=== PATIENT | male | born 1940 | race Caucasian/White ===

== ENCOUNTER 2018-10-18 07:23 | Day surgery (SDC) | payer MEDICARE, BC ==
[2018-10-18] MEDS ORDERED: PROPOFOL INJ 200 MG/20 ML VIAL IV ONE (08:36)
[2018-10-18] MEDS ORDERED: DIPHENHYDRAMINE HCL 50 MG/ML VIAL IV PRN (09:33)
[2018-10-18] MEDS ORDERED: PROMETHAZINE HCL INJ 25 MG/1 ML VIAL IV PRN (09:33)
[2018-10-18] MEDS ORDERED: FENTANYL CITRATE INJ/PF 100 MCG/2 ML AMPUL IV PRN ×3 (09:33)
--- NOTE | 2018-10-18 10:09 | EKG REPORT ---
SEVERITY:- NORMAL ECG - SINUS RHYTHM : Confirmed by: Maria Fernanda Mcneal 18-Oct-2018 10:08:52
[2018-10-18 10:31] VITALS: BP 135/75
--- NOTE | 2018-10-18 11:24 | Operative Report ---
Operative Report DATE OF SURGERY: 10/18/18 Operative Report: The risks, benefits and alternatives of the procedure including the risk of bleeding, perforation requiring surgery have been explained to the patient in detail and informed consent has been obtained. Patient is brought back to the operating room and placed in a left, lateral decubital position. Timeout was called. Propofol medication is administered. An Olympus videoscope was introduced into the patient's rectum. There are no masses, tears or fissures. The scope was then advanced all the way to the cecum. The cecum was identified by the usual anatomical landmarks including the ileocecal valve as well as the appendiceal office. Photodocumentation is obtained. Prep is good. The scope was then sequentially pulled back via the various segments of the colon including the ascending colon, hepatic flexure, transverse colon, splenic flexure, descending colon and finally into the rectosigmoid portions of the colon. Retroflexion maneuver was performed. PREOPERATIVE DIAGNOSIS: Colorectal cancer screening POSTOPERATIVE DIAGNOSIS: 2 colon polyps that were removed via snare polypectomy, polyps were located in the descending colon as well as in the hepatic flexure area. Diverticulosis without any evidence of diverticulitis. Internal hemorrhoids. Melanosis coli OPERATION: Colonoscopy with snare polypectomy SURGEON: BRONWYN MENDOZA ANESTHESIA: LMAC TISSUE REMOVED OR ALTERED: As noted above. COMPLICATIONS: None. ESTIMATED BLOOD LOSS: None. INTRAOPERATIVE FINDINGS: As noted above. PROCEDURE: Patient tolerated the procedure well. No immediate postprocedure complications are noted. Patient discharged in good condition. Discharge date 10/18/2018. Discharge diet: Regular. Discharge activity: Regular. 2-3-week follow-up to discuss findings. Patient is instructed to call the office or proceed to the emergency room should there be any further problems or questions. Wait on the pathology. 5-year surveillance colonoscopy.
== END 2018-10-18 10:36 | disposition home or self-care (01) ==
LOC: OROUT 07:23
PROVIDERS: ATTEND Internal Medicine Gastroenterology
DX: Z12.11 Encounter for screening for malignant neoplasm of colon (principal); K57.30 Diverticulosis of large intestine without perforation or abscess without bleeding; K64.8 Other hemorrhoids; D12.4 Benign neoplasm of descending colon; D12.6 Benign neoplasm of colon, unspecified; K63.89 Other specified diseases of intestine; J44.9 Chronic obstructive pulmonary disease, unspecified; I10 Essential (primary) hypertension; K21.9 Gastro-esophageal reflux disease without esophagitis; Z87.891 Personal history of nicotine dependence; Z79.82 Long term (current) use of aspirin; Z79.899 Other long term (current) drug therapy; Z79.51 Long term (current) use of inhaled steroids; Z85.828 Personal history of other malignant neoplasm of skin
CPT/HCPCS: 45385; 88305 ×2; 93005; 93010; J2704; 811

== ENCOUNTER → 2019-06-20 | Outpatient (CLI) | payer MEDICARE, BC ==
[2019-06-20 11:14] LABS: APPEARANCE,URINE CLEAR; BILIRUBIN,URINE NEGATIVE (NEGATIVE); COLOR,URINE STRAW; GLUCOSE, URINE NEGATIVE (NEGATIVE); KETONES,URINE NEGATIVE (NEGATIVE); LEUKOCYTE ESTERASE,URINE NEGATIVE (NEGATIVE); NITRITE,URINE NEGATIVE (NEGATIVE); PROTEIN,URINE 30 mg/dL (NEGATIVE); URINE SPECIFIC GRAVITY 1.006; UROBILINOGEN,URINE NEGATIVE mg/dL (<2.0)
[2019-06-20 11:43] LABS: ALBUMIN 4.4 g/dL (3.5-5.0); ANION GAP 11 (5-19); BLOOD UREA NITROGEN 20 mg/dL (7-20); CALCIUM 9.9 mg/dL (8.4-10.2); CARBON DIOXIDE 26 mmol/L (22-30); CHLORIDE 102 mmol/L (98-107); GLUCOSE 88 mg/dL (75-110); PHOSPHORUS 3.1 mg/dL (2.5-4.5); POTASSIUM 4.8 mmol/L (3.6-5.0)
[2019-06-20 12:12] LABS: UR PRO/CREAT RATIO RESULT 1.3 mg/mg (0.0-0.2); URINE CREATININE 43.8 mg/dL (22-328)
== END ==
LOC: OD 10:03
PROVIDERS: ATTEND Internal Medicine Nephrology
DX: I12.9 Hypertensive chronic kidney disease with stage 1 through stage 4 chronic kidney disease, or unspecified chronic kidney disease (principal); N18.3 Chronic kidney disease, stage 3 (moderate); R80.9 Proteinuria, unspecified
CPT/HCPCS: 36415; 80069; 81001; 82570; 84156

== ENCOUNTER 2020-05-03 19:17 | Inpatient (IN) | payer MEDICARE, BC ==
[2020-05-03] MEDS ORDERED: IPRATROPIUM/ALBUTEROL 0.5-2.5 MG/3 ML AMPUL NEB ONE (21:32)
[2020-05-03] MEDS ORDERED: NORMAL SALINE 1000 ML 1,000 ML IV ONE (21:32)
[2020-05-03] MEDS ORDERED: METHYLPREDNISOLONE INJ 125 MG/2 ML SDV IV ONE (21:33)
--- NOTE | 2020-05-03 21:36 | ER Document Report ---
ED General - General Chief Complaint: Shortness Of Breath Stated Complaint: SOB Time Seen by Provider: 05/03/20 21:02 TRAVEL OUTSIDE OF THE [place] IN LAST 30 DAYS: No - HPI Context: This is a 79-year-old male, with a history of COPD, not on home O2, quit smoking 3 years ago, presenting complaining of shortness of breath for the past 2 days. 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 Patient states he was working in an attic approximately 2 days ago for about 45 minutes. He says the attic was extremely hot and he found that his shortness of breath symptoms started after working in the attic. He states that despite home breathing treatments his symptoms have been persistent for basically 2-1/2 days now. Patient states that exertion and heat seem to exacerbate his shortness of breath. Patient states he keeps his house between 74 and 77 degrees. Patient states that the only alleviating factor for his shortness of breath over the past couple of days has been to step out into the cool dry night air. Patient has a past medical history also significant for elevated cholesterol, hypertension and chronic renal insufficiency. Patient is not on dialysis. Patient sees a Dr. Desai in [place]. And patient also sees a Dr. Johnson with cardiology in [place]. Patient states he had a stress test done earlier this year that was negative. Patient denies loss of taste or smell, known exposure to patients or persons positive for COVID or persons under investigation for COVID. Patient denies fever and chills patient denies chest pain, nausea, vomiting, headache, slurred speech. Patient's initial O2 sat upon EMS arrival was 85% and increased to 93% after putting him on 2 L of oxygen by nasal cannula. Associated symptoms: Other - See HPI Exacerbated by: Other - See HPI Relieved by: Other - See HPI Recently seen / treated by doctor: No - Related Data Allergies/Adverse Reactions: No Known Allergies Allergy (Verified 10/18/18 08:07) Past Medical History - General Information source: Patient, Emergency Med Personnel - Social History Smoking Status: Former Smoker Drug Abuse: None Lives with: Alone Family History: Reviewed & Not Pertinent Patient has suicidal ideation: No - Past Medical History Cardiac Medical History: Reports: Hx Coronary Artery Disease - CARDIAC STENT X 1, Hx Hypercholesterolemia, Hx Hypertension - ON MEDICATION Denies: Hx Heart Attack Pulmonary Medical History: Reports: Hx COPD - NO OXYGEN, USE OF INHALER PRN, Hx Pneumonia - 1970 Denies: Hx Asthma, Hx Bronchitis Neurological Medical History: Denies: Hx Cerebrovascular Accident, Hx Seizures Musculoskeletal Medical History: Denies Hx Arthritis - Immunizations Hx Diphtheria, Pertussis, Tetanus Vaccination: No - UNSURE 4-5 YRS AGO? Hx Pneumococcal Vaccination: 08/22/10 Review of Systems - Review of Systems Constitutional: No symptoms reported EENT: No symptoms reported Cardiovascular: No symptoms reported Respiratory: Cough, Short of breath Gastrointestinal: No symptoms reported Genitourinary: No symptoms reported Male Genitourinary: No symptoms reported Musculoskeletal: No symptoms reported Skin: No symptoms reported Hematologic/Lymphatic: No symptoms reported Neurological/Psychological: No symptoms reported -: Yes All other systems reviewed and negative Physical Exam - Vital signs Vitals: Temp Resp BP Pulse Ox 98.0 F 23 H 123/75 95 05/03/20 19:19 05/03/20 19:19 05/03/20 19:19 05/03/20 19:19 - Notes Notes: CONSTITUTIONAL [Vital signs reviewed, Patient appears comfortable, Alert and oriented X 3, Normal stature. Nontoxic appearance and patient does not appear to be in any acute distress] HEAD [Atraumatic, Normocephalic.] EYES [Eyes are normal to inspection, No discharge from eyes, Extraocular muscles intact, Sclera are normal, Conjunctiva are normal.] ] NECK [Normal ROM, No jugular venous distention, No meningeal signs, no carotid bruit.] RESPIRATORY CHEST [Chest is nontender, Breath sounds slightly diminished and occasional expiratory wheeze is present, No respiratory distress.] CARDIOVASCULAR [RRR, No murmurs, Normal S1 S2, No rub, No gallop.] ABDOMEN [Abdomen is nontender, No pulsatile masses, No other masses, Bowel sounds normal, No distension, No peritoneal signs, No hernias.] BACK [There is no CVA Tenderness, There is no tenderness to palpation, Normal inspection.] UPPER EXTREMITY [Inspection normal, No cyanosis, No clubbing, No edema, 2+ radial pulses.] LOWER EXTREMITY [Inspection normal, No cyanosis, No clubbing, No edema, No calf tenderness, 2+ femoral pulses.] NEURO [No focal motor deficits, No focal sensory deficits, Speech normal.] SKIN [Skin is warm, Skin is dry, Skin is normal color.] LYMPHATIC [No adenopathy in neck.] PSYCHIATRIC [Normal affect. ] Course - Re-evaluation Re-evalutation: 05/03/20 21:51 This MD spoke to the patient's daughter, Omaira at 2143 hrs. at [phone] to give her an update in terms of how her father was doing. Omaira states she appreciated the call. This MD said that he would contact Omaira once the work-up was completed on the patient. 05/04/20 00:21 Results of ED MSE discussed with patient and patient's daughter by phone. Recommendation to admit patient discussed with patient. Patient was agreeable to this. All questions were answered. - Vital Signs Vital signs: Temp Pulse Resp BP Pulse Ox 98.1 F 136 H 34 H 109/65 90 L 05/04/20 02:01 05/03/20 23:58 05/04/20 02:01 05/04/20 02:01 05/04/20 02:01 - Laboratory Result Diagrams: 05/03/20 19:44 05/03/20 19:44 Laboratory results interpreted by me: 05/03/20 05/03/20 05/04/20 19:44 19:44 00:05 WBC 11.9 H Hgb 13.0 L Seg Neuts % (Manual) 93 H Band Neutrophils % 2 L Lymphocytes % (Manual) 3 L Monocytes % (Manual) 2 L Abs Neuts (Manual) 11.3 H Abs Lymphs (Manual) 0.4 L VBG pCO2 32.4 L VBG HCO3 19.7 L Sodium 133.2 L BUN 37 H Creatinine 1.90 H Est GFR ( Amer) 41 L Est GFR (MDRD) Non-Af 34 L Glucose 116 H Total Bilirubin 1.6 H Direct Bilirubin 0.5 H - Diagnostic Test Radiology reviewed: Reports reviewed - EKG Interpretation by Me Additional EKG results interpreted by me: 05/03/20 21:52 EKG obtained on 05/03/2020 at 1920 hrs. was interpreted by this MD. Findings normal sinus rhythm, rate 97, normal axis, MD interval appears within normal limits, P waves proceed QRS complexes, QRS complexes appear within normal limits. QTc is not prolonged, there are no obvious patterns of ST segment elevation or depression present to suggest acute myocardial ischemia or infarction. There is no prior EKG readily available for comparison. Impression normal sinus rhythm with nonspecific ST segments. - Consults Dr. Ragland Time consulted: 00:10 - will see pt in ED Reason for consultation: 05/04/20 00:10 pneumonia Consulted provider: will come to ER Discharge - Discharge Clinical Impression: Pneumonia Qualifiers: Pneumonia type: due to unspecified organism Laterality: left Lung location: lower lobe of lung Qualified Code(s): J18.9 - Pneumonia, unspecified organism Condition: Stable Disposition: ADMITTED INPATIENT Admitting Provider: Ellyn (Hospitalist) Unit Admitted: [facility]
--- NOTE | 2020-05-03 22:38 | RADIOLOGY REPORT (SQ) ---
CHEST X-RAY 1 VIEW on 05/03/2020 at 10:01 PM CLINICAL INDICATION: Shortness of breath COMPARISON: None FINDINGS: There is evidence of calcified granulomatous disease in the chest. There is patchy left lower lung opacity suggesting early pneumonia. Lungs are otherwise clear. Cardiac, hilar and mediastinal contours are within normal limits. Pulmonary vascularity is within normal limits. IMPRESSION: Patchy left basilar opacity suggesting early pneumonia.
[2020-05-03 22:59] LABS: HEMATOCRIT 38.3 % (37.9-51.0); MEAN CORPUSCULAR HEMOGLOBIN 29.9 pg (27.0-33.4); MEAN CORPUSCULAR HGB CONC 34.1 g/dL (32.0-36.0); MEAN CORPUSCULAR VOLUME 88 fl (80-97); PLATELET COUNT 158 10^3/uL (150-450); RED BLOOD COUNT 4.36 10^6/uL (4.35-5.55); RED CELL DISTRIBUTION WIDTH 13.8 % (11.5-14.0); WHITE BLOOD COUNT 11.9 10^3/uL (4.0-10.5)
[2020-05-03 23:02] LABS: ALBUMIN 3.9 g/dL (3.5-5.0); ALKALINE PHOSPHATASE 51 U/L (38-126); ANION GAP 10 (5-19); ASPARTATE AMINO TRANSFERASE 23 U/L (17-59); BILIRUBIN,DIRECT 0.5 mg/dL (0.0-0.4); BILIRUBIN,TOTAL 1.6 mg/dL (0.2-1.3); BLOOD UREA NITROGEN 37 mg/dL (7-20); CALCIUM 9.2 mg/dL (8.4-10.2); CARBON DIOXIDE 22 mmol/L (22-30); CHLORIDE 101 mmol/L (98-107); GLUCOSE 116 mg/dL (75-110); POTASSIUM 4.2 mmol/L (3.6-5.0); TOTAL PROTEIN 7.1 g/dL (6.3-8.2)
[2020-05-03 23:12] LABS: NT PRO BNP 172 pg/mL (<450)
[2020-05-03 23:20] LABS: TROPONIN I < 0.012 ng/mL
[2020-05-03 23:21] LABS: ABSOLUTE LYMPHOCYTES# (MANUAL) 0.4 10^3/uL (0.5-4.7); ABSOLUTE MONOCYTES # (MANUAL) 0.2 10^3/uL (0.1-1.4); BAND NEUTROPHILS % (MANUAL) 2 % (3-5); BASOPHILS % (MANUAL) 0 % (0-2); EOSINOPHILS % (MANUAL) 0 % (0-6); HYPERSEGMENTED NEUTROPHILS PRESENT; LYMPHOCYTES % (MANUAL) 3 % (13-45); MONOCYTES % (MANUAL) 2 % (3-13); SEGMENTED NEUTROPHILS % (MAN) 93 % (42-78); TOTAL CELLS COUNTED 100; TOXIC VACUOLATION PRESENT
[2020-05-03 23:22] LABS: PLATELET COMMENT ADEQUATE
[2020-05-03 23:24] LABS: BURR CELLS SLIGHT
[2020-05-04] MEDS ORDERED: CEFTRIAXONE 1 GM/D5W RTU 1 GM/50 ML RTUPB IV ONE (00:08)
[2020-05-04] MEDS ORDERED: AZITHROMYCIN INJ 500 MG VIAL IV ONE ×2 (00:09→04:00)
[2020-05-04 00:44] LABS: VENOUS BLOOD BASE EXCESS -4.2 mmol/L; VENOUS BLOOD HCO3 19.7 mmol/L (20-32); VENOUS BLOOD PCO2 32.4 mmHg (35-63); VENOUS BLOOD PH 7.4 (7.30-7.42)
--- NOTE | 2020-05-04 01:32 | PDOC H&P ---
History of Present Illness Admission Date/PCP: Tashi HAMLIN MD Patient complains of: Shortness of breath History of Present Illness: STALIN WRIGHT JR is a 79 year old male with a history of coronary artery disease and stents. He also has a history of COPD, hypertension, hyperlipidemia and prostatic hyperplasia. Of the last several days he has noticed increasing shortness of breath. He denies contact with any sick patients. He stopped smoking 5 years ago. He is normally very active. He denies fever or chills. He states that he occasionally coughs clear sputum. He denies any chest pain pressure or palpitations. While in the emergency department his temperature began to rise and when he first presented he was stable on room air now needs 2 L nasal cannula oxygen. Chest x-ray suggests mild infiltrate on the left base and possibly on the right. His serum creatinine is elevated but appears to be at his baseline. His total bilirubin is 1.6 with no history of liver disease. The patient technically meets criteria for sepsis however with his underlying heart disease we need to be careful of his volume status. He is not exhibiting any hypotension. He will be admitted and undergo COVID testing. His absolute lymphocyte count is 0.4. Ferritin, LDH, d-dimer and CRP were not ordered on admission. We will continue his baseline medications as well as his supplements with the addition of vitamin C and zinc. Antibiotics will be ceftriaxone and azithromycin. Past Medical History Cardiac Medical History: Reports: Coronary Artery Disease - CARDIAC STENT X 1, Hyperlipidema, Hypertension - ON MEDICATION Denies: Myocardial Infarction Pulmonary Medical History: Reports: Chronic Obstructive Pulmonary Disease (COPD) - NO OXYGEN, USE OF INHALER PRN, Pneumonia - 1970 Denies: Asthma, Bronchitis Neurological Medical History: Denies: Seizures Endocrine Medical History: Denies: Diabetes Mellitus Type 2 Renal/ Medical History: Reports: Chronic Kidney Disease Malignancy Medical History: Reports: None GI Medical History: Reports: Gastroesophageal Reflux Disease Denies: Cirrhosis, Hepatitis, Peptic Ulcer Disease Musculoskeltal Medical History: Denies: Arthritis Psychiatric Medical History: Reports: Tobacco Dependency Hematology: Denies: Anemia Infectious Medical History: Denies: Clostridium Difficile, Hepatitis B, Hepatitis C Past Surgical History Past Surgical History: Reports: Cardiac Catheterization Social History Information Source: Patient Lives with: Alone Smoking Status: Former Smoker Electronic Cigarette use?: No Frequency of Alcohol Use: None Hx Recreational Drug Use: No Hx Prescription Drug Abuse: No - Advance Directive Resuscitation Status: Do Not Resuscitate Surrogate healthcare decision maker:: Patient in fact has a living well at home. Family History Family History: Reviewed & Not Pertinent Parental Family History Reviewed: Yes Children Family History Reviewed: Yes Sibling(s) Family History Reviewed.: Yes Medication/Allergy Home Medications: Aspirin [Aspirin 81 mg Chewable Tablet] 81 mg PO DAILY 07/31/11 Omeprazole [Prilosec] 40 mg PO DAILY 07/31/11 Albuterol Sulfate [Ventolin 0.083% Neb 2.5 mg/3 mL Ampul] 1 puff IH DAILY PRN 10/18/18 Cholecalciferol (Vitamin D3) [Vitamin D3 2000 unit Tablet] 200 unit PO DAILY 10/18/18 Diphenhydramine HCl [Benadryl] 25 mg PO DAILY 10/18/18 Loratadine [Claritin] 10 mg PO DAILY 10/18/18 Metoprolol Succinate [Toprol Xl] 25 mg PO DAILY 10/18/18 Brooks-3S/Dha/Epa/Fish Oil [Fish Oil 1,200 mg Softgel] 1 tab PO DAILY 10/18/18 Rosuvastatin Calcium [Crestor] 40 mg PO DAILY 10/18/18 Sennosides/Docusate Sodium [Stool Softener-Laxative Tablet] 1 tab PO DAILY PRN 10/18/18 Tamsulosin HCl [Flomax] 0.4 mg PO DAILY 10/18/18 Tiotropium [place] [Spiriva Handihaler 5 Cap/Kit (18 Mcg/Cap)] 18 mcg IH DAILY 10/18/18 Allergies/Adverse Reactions: No Known Allergies Allergy (Verified 10/18/18 08:07) Review of Systems All systems: reviewed and no additional remarkable complaints except as stated Constitutional: PRESENT: fatigue Respiratory: PRESENT: cough, dyspnea, sputum - Clear Allergic/Immunologic: PRESENT: seasonal rhinorrhea Physical Exam Vital Signs: Temp Pulse Resp BP Pulse Ox 100.2 F 136 H 30 H 159/74 H 95 05/03/20 23:58 05/03/20 23:58 05/03/20 23:58 05/03/20 23:58 05/03/20 23:58 Intake & Output 05/02/20 05/03/20 05/04/20 06:59 06:59 06:59 Weight 75.4 kg General appearance: PRESENT: cooperative, mild distress, well-developed Head exam: PRESENT: atraumatic, normocephalic Eye exam: PRESENT: conjunctiva pink, EOMI. ABSENT: scleral icterus Ear exam: PRESENT: normal external ear exam. ABSENT: bleeding, drainage Mouth exam: PRESENT: dry mucosa, tongue midline Teeth exam: ABSENT: poor dentation Neck exam: ABSENT: carotid bruit, JVD, lymphadenopathy Respiratory exam: PRESENT: rales - Bilateral bases, symmetrical, tachypnea. ABSENT: accessory muscle use, rhonchi, wheezes Cardiovascular exam: PRESENT: +S1, +S2, tachycardia. ABSENT: bradycardia, irregular rhythm GI/Abdominal exam: PRESENT: normal bowel sounds, soft. ABSENT: distended, guarding, tenderness Rectal exam: PRESENT: deferred Gentrourinary exam: ABSENT: indwelling catheter Extremities exam: ABSENT: pedal edema Musculoskeletal exam: PRESENT: ambulatory, normal inspection. ABSENT: deformity, dislocation Neurological exam: PRESENT: alert, awake, oriented to person, oriented to place, oriented to time, oriented to situation, CN II-XII grossly intact. ABSENT: altered, motor sensory deficit Psychiatric exam: PRESENT: flat affect. ABSENT: agitated, anxious Focused psych exam: ABSENT: delusional, paranoid, restlessness Skin exam: PRESENT: dry, normal color, warm. ABSENT: rash Results Laboratory Results: 05/03/20 19:44 05/03/20 19:44 05/03/20 05/03/20 05/04/20 19:44 19:44 00:05 WBC 11.9 H RBC 4.36 Hgb 13.0 L Hct 38.3 MCV 88 MCH 29.9 MCHC 34.1 RDW 13.8 Plt Count 158 Seg Neutrophils % Not Reportable VBG pH 7.40 VBG pCO2 32.4 L VBG HCO3 19.7 L VBG Base Excess -4.2 Sodium 133.2 L Potassium 4.2 Chloride 101 Carbon Dioxide 22 Anion Gap 10 BUN 37 H Creatinine 1.90 H Est GFR ( Amer) 41 L Glucose 116 H Calcium 9.2 Total Bilirubin 1.6 H AST 23 Alkaline Phosphatase 51 Total Protein 7.1 Albumin 3.9 05/03/20 19:44 Troponin I < 0.012 NT-Pro-B Natriuret Pep 172 Impressions: Chest X-Ray 05/03/20 21:28 IMPRESSION: Patchy left basilar opacity suggesting early pneumonia. Assessment and Plan - Diagnosis (1) Pneumonia Qualifiers: Pneumonia type: due to unspecified organism Laterality: left Lung location: lower lobe of lung Qualified Code(s): J18.9 - Pneumonia, unspecified organism Is this a current diagnosis for this admission?: Yes Plan: In addition to the left there is a suggestion of right side infiltrate. The patient is dry and it is likely that the infiltrates will be more prominent once he is hydrated. He will be on azithromycin and ceftriaxone for community- acquired pneumonia. While he is under investigation for COVID we will avoid nebulizer treatments. (2) Acute respiratory failure with hypoxia Is this a current diagnosis for this admission?: Yes Plan: The patient is not on oxygen at home. During his evaluation the emergency room his oxygen saturation dropped and he now requires 2 L nasal cannula. He was tachypneic early but seems to be settling. (3) Person under investigation for COVID-19 Is this a current diagnosis for this admission?: Yes Plan: Absolute lymphocyte count was low. D-dimer, ferritin, LDH and CRP are pending. (4) COPD (chronic obstructive pulmonary disease) Qualifiers: COPD type: unspecified COPD Qualified Code(s): J44.9 - Chronic obstructive pulmonary disease, unspecified Is this a current diagnosis for this admission?: Yes Plan: The patient is not an extremis with his respiratory status. Initially we will u tilize a Trelegy inhaler to take the place of his Spiriva and home inhaler regimen. If the test covered negative we will add nebulizer treatments. He will also be getting Decadron 6 mg daily. (5) Dehydration Is this a current diagnosis for this admission?: Yes Plan: IV fluids. Will avoid standard bolus for sepsis as the patient is not hypotensive and he does have a history of heart disease. He technically meets criteria for sepsis with increased oxygen demand, total bilirubin elevation and elevated serum creatinine. His serum creatinine is likely his baseline but his BUN is elevated. Will monitor intake and output as well as vital signs (6) Chronic renal failure, stage 3 (moderate) Is this a current diagnosis for this admission?: Yes Plan: He does appear to be at his baseline. We will continue to monitor with daily laboratory studies. (7) CAD (coronary artery disease) Qualifiers: Coronary Disease-Associated Artery/Lesion type: [place] artery [place] vs. transplanted heart: [place] heart Associated angina: without angina Qualified Code(s): I25.10 - Atherosclerotic heart disease of [place] coronary artery without angina pectoris Is this a current diagnosis for this admission?: Yes Plan: The patient had stent placement 5 years ago. We will continue his statin therapy and aspirin. He is also on metoprolol. Will monitor on telemetry. No evidence of acute coronary symptoms. (8) HTN (hypertension) Qualifiers: Hypertension type: essential hypertension Qualified Code(s): I10 - Essential (primary) hypertension Is this a current diagnosis for this admission?: Yes Plan: Blood pressure is slightly elevated. Will monitor closely with vital signs and monitor on telemetry. If necessary we will add additional antihypertensive medi cations. (9) Hypercholesteremia Is this a current diagnosis for this admission?: Yes Plan: The patient is on rosuvastatin 40 mg daily which is the maximum dose. I will utilize atorvastatin at 80 mg daily while in the hospital. (10) Benign prostatic hyperplasia Qualifiers: Lower urinary tract symptom presence: unspecified whether lower urinary tract symptoms present Qualified Code(s): N40.0 - Benign prostatic hyperplasia without lower urinary tract symptoms Is this a current diagnosis for this admission?: Yes Plan: Continue Flomax (11) Gastroesophageal reflux disease Qualifiers: Esophagitis presence: without esophagitis Qualified Code(s): K21.9 - Gastro-esophageal reflux disease without esophagitis Is this a current diagnosis for this admission?: Yes Plan: Continue proton pump inhibitor therapy. - Time Time Spent with patient: 35 or more minutes Medications reviewed and adjusted accordingly: Yes Anticipated Discharge Disposition: Home with Home Health Anticipated Discharge Timeframe: Unknown - Inpatient Certification Based on my medical assessment, after consideration of the patient's comorbidities, presenting symptoms, or acuity I expect that the services needed warrant INPATIENT care.: Yes I certify that my determination is in accordance with my understanding of Medicare's requirements for reasonable and necessary INPATIENT services [42 CFR 412.3e].: Yes Medical Necessity: Need For IV Fluids, Need For Continuous Telemetry Monitoring, Need for IV Antibiotics Post Hospital Care: D/C or Transfer Summary
[2020-05-04] MEDS: RINGERS SOLUTION,LACTATED 1,000 ML IV PRN ×3 (02:38→22:48)
[2020-05-04] MEDS: PANTOPRAZOLE SODIUM 40 MG TABLET.DR PO SCH (06:36)
[2020-05-04 06:58] LABS: HEMATOCRIT 35.5 % (37.9-51.0); HEMOGLOBIN 12.6 g/dL (13.5-17.0); MEAN CORPUSCULAR HEMOGLOBIN 30.3 pg (27.0-33.4); MEAN CORPUSCULAR HGB CONC 35.4 g/dL (32.0-36.0); MEAN CORPUSCULAR VOLUME 86 fl (80-97); PLATELET COUNT 140 10^3/uL (150-450); RED BLOOD COUNT 4.14 10^6/uL (4.35-5.55); RED CELL DISTRIBUTION WIDTH 14.3 % (11.5-14.0); WHITE BLOOD COUNT 10.9 10^3/uL (4.0-10.5)
[2020-05-04 07:13] LABS: INTERNATIONAL RATION (INR) 1.35; PROTHROMBIN TIME 16.8 SEC (11.4-15.4)
[2020-05-04 07:14] LABS: PARTIAL THROMBOPLASTIN TIME 48.8 SEC (23.5-35.8)
[2020-05-04 07:16] LABS: D-DIMER 1.05 ug/mL (0.00-0.50)
[2020-05-04 07:25] LABS: ALBUMIN 3.5 g/dL (3.5-5.0); ALKALINE PHOSPHATASE 44 U/L (38-126); ANION GAP 9 (5-19); ASPARTATE AMINO TRANSFERASE 23 U/L (17-59); BILIRUBIN,DIRECT 0.3 mg/dL (0.0-0.4); BLOOD UREA NITROGEN 29 mg/dL (7-20); CALCIUM 8.9 mg/dL (8.4-10.2); CARBON DIOXIDE 22 mmol/L (22-30); CHLORIDE 105 mmol/L (98-107); GLUCOSE 150 mg/dL (75-110); POTASSIUM 4.1 mmol/L (3.6-5.0); TOTAL PROTEIN 6.6 g/dL (6.3-8.2)
[2020-05-04 07:34] LABS: ABSOLUTE LYMPHOCYTES# (MANUAL) 0.1 10^3/uL (0.5-4.7); ABSOLUTE MONOCYTES # (MANUAL) 0.4 10^3/uL (0.1-1.4); BAND NEUTROPHILS % (MANUAL) 5 % (3-5); BASOPHILS % (MANUAL) 0 % (0-2); EOSINOPHILS % (MANUAL) 0 % (0-6); LYMPHOCYTES % (MANUAL) 1 % (13-45); MONOCYTES % (MANUAL) 4 % (3-13); SEGMENTED NEUTROPHILS % (MAN) 90 % (42-78); TOTAL CELLS COUNTED 100
[2020-05-04 07:35] LABS: ANISOCYTOSIS SLIGHT; PLATELET COMMENT DECREASED
[2020-05-04 07:49] LABS: C-REACTIVE PROTEIN 336.1 mg/L (<10.0)
[2020-05-04] MEDS: METOPROLOL SUCCINATE 25 MG TAB.SR.24H PO SCH (10:21)
[2020-05-04] MEDS: CHOLECALCIFEROL (D3) 1,000 UNIT (25 MCG) TABLET PO SCH (10:21)
[2020-05-04] MEDS: DEXAMETHASONE SOD PHOSPHATE INJ 4 MG/1 ML VIAL IV SCH (10:22)
[2020-05-04] MEDS: ZINC SULFATE 220 MG CAPSULE PO SCH (10:22)
[2020-05-04] MEDS: LORATADINE 10 MG TABLET PO SCH (10:24)
[2020-05-04] MEDS: ENOXAPARIN SODIUM INJ 40 MG/0.4 ML DISP.SYRIN SUBCUT SCH (10:24)
[2020-05-04 10:32] LABS: ARTERIAL BLOOD BASE EXCESS -2.9 mmol/L; ARTERIAL BLOOD H2CO3 0.97 mmol/L (1.05-1.35); ARTERIAL BLOOD HCO3 20.7 mmol/L (20-24); ARTERIAL BLOOD O2 SATURATION 86.7 % (94-98); ARTERIAL BLOOD PCO2 32.2 mmHg (35-45); ARTERIAL BLOOD PH 7.43 (7.35-7.45); ARTERIAL BLOOD PO2 49.9 mmHg (80-100); ARTERIAL BLOOD TOTAL CO2 21.6 mmol/L (23-27)
[2020-05-04 10:33] LABS: ARTERIAL BLOOD FIO2 21%
[2020-05-04] MEDS: ASCORBIC ACID 500 MG TABLET PO SCH ×2 (11:21→17:39)
[2020-05-04] MEDS ORDERED: IPRATROPIUM/ALBUTEROL 0.5-2.5 MG/3 ML AMPUL NEB PRN (13:32)
[2020-05-04] MEDS ORDERED: TAMSULOSIN HCL 0.4 MG CAP.SR.24H PO SCH (18:00)
[2020-05-04] MEDS ORDERED: ASPIRIN 81 MG TABLET, ENT COATED PO SCH (22:00)
[2020-05-04] MEDS ORDERED: ATORVASTATIN CALCIUM 80 MG TABLET PO SCH (22:00)
[2020-05-04] MEDS ORDERED: AZITHROMYCIN 500 MG in DEXTROSE 5%-WATER 250 ML IV SCH (22:00)
[2020-05-04] MEDS ORDERED: SENNOSIDES/DOCUSATE 8.6-50 MG 1 EACH TABLET PO SCH (22:00)
[2020-05-04] MEDS ORDERED: CEFTRIAXONE 1 GM/D5W RTU 1 GM/50 ML RTUPB IV SCH (22:00)
--- NOTE | 2020-05-05 02:32 | EKG REPORT ---
SEVERITY:- NORMAL ECG - SINUS RHYTHM : Confirmed by: Marvin Ivan MD 05-May-2020 02:30:58
--- NOTE | 2020-05-05 02:32 | EKG REPORT ---
SEVERITY:- NORMAL ECG - SINUS RHYTHM : Confirmed by: Marvin vIan MD 05-May-2020 02:30:53
[2020-05-05] MEDS: PANTOPRAZOLE SODIUM 40 MG TABLET.DR PO SCH (05:53)
[2020-05-05] MEDS: ENOXAPARIN SODIUM INJ 40 MG/0.4 ML DISP.SYRIN SUBCUT SCH (09:57)
[2020-05-05 10:02] LABS: HEMOGLOBIN 11.8 g/dL (13.5-17.0); MEAN CORPUSCULAR HEMOGLOBIN 29.5 pg (27.0-33.4); MEAN CORPUSCULAR HGB CONC 33.8 g/dL (32.0-36.0); MEAN CORPUSCULAR VOLUME 88 fl (80-97); PLATELET COUNT 160 10^3/uL (150-450); RED CELL DISTRIBUTION WIDTH 13.7 % (11.5-14.0); WHITE BLOOD COUNT 12.9 10^3/uL (4.0-10.5)
[2020-05-05] MEDS: ZINC SULFATE 220 MG CAPSULE PO SCH (10:07)
[2020-05-05] MEDS: ASCORBIC ACID 500 MG TABLET PO SCH (10:07)
[2020-05-05] MEDS: METOPROLOL SUCCINATE 25 MG TAB.SR.24H PO SCH (10:07)
[2020-05-05] MEDS: DEXAMETHASONE SOD PHOSPHATE INJ 4 MG/1 ML VIAL IV SCH (10:08)
[2020-05-05] MEDS: LORATADINE 10 MG TABLET PO SCH (10:08)
[2020-05-05] MEDS: CHOLECALCIFEROL (D3) 1,000 UNIT (25 MCG) TABLET PO SCH (10:08)
[2020-05-05 10:31] LABS: ANION GAP 10 (5-19); BLOOD UREA NITROGEN 36 mg/dL (7-20); CALCIUM 9.3 mg/dL (8.4-10.2); CARBON DIOXIDE 21 mmol/L (22-30); CHLORIDE 107 mmol/L (98-107); GLUCOSE 115 mg/dL (75-110); POTASSIUM 4.6 mmol/L (3.6-5.0)
[2020-05-05 13:48] VITALS: BP 104/57
--- NOTE | 2020-05-05 15:37 | PDOC DISCHARGE SUMMARY ---
Impression - Admit/DC Date/PCP Admission Date/Primary Care Provider: 05/04/20 01:13 Tashi HAMLIN MD Discharge Date: 05/05/20 - Discharge Diagnosis (1) Acute respiratory failure with hypoxia Is this a current diagnosis for this admission?: Yes (2) COPD (chronic obstructive pulmonary disease) Is this a current diagnosis for this admission?: Yes (3) Chronic renal failure, stage 3 (moderate) Is this a current diagnosis for this admission?: Yes (4) Dehydration Is this a current diagnosis for this admission?: Yes (5) Person under investigation for COVID-19 Is this a current diagnosis for this admission?: Yes (6) Pneumonia Is this a current diagnosis for this admission?: Yes - Assessment Summary: STALIN WRIGHT JR is an 79 year old male with a history of CAD, COPD, hypertension, hyperlipidemia and CKD stage 3 who presented with several days of increasing shortness of breath associated with productive cough. In the ED, he was febrile and hypoxemic on room air. Chest x-ray suggested bilateral pneumonia. He was admitted for treatment of community-acquired pneumonia. He was treated with IV antibiotics and supplemental oxygen with good effect. Due to concern for possible COVID-19 infection, he was tested and found to be negative. He was also found to have an acute kidney injury, likely due to dehydration in the setting of infection, and this was treated with IV fluids. He was successfully weaned off of oxygen, and had a normal ambulatory oxygen saturation on the day of discharge. He was discharged home on oral antibiotics with close outpatient PCP follow up. - Additional Information Resuscitation Status: Do Not Resuscitate Discharge Diet: Cardiac Discharge Activity: Activity As Tolerated Referrals: Tashi HAMLIN MD [Primary Care Provider] - Follow up as needed Prescriptions: Azithromycin [Zithromax] 250 mg PO DAILY #5 tablet Home Medications: Aspirin [Aspirin 81 mg Chewable Tablet] 81 mg PO DAILY 07/31/11 Omeprazole [Prilosec 10 mg Capsule] 40 mg PO DAILY 07/31/11 Cholecalciferol (Vitamin D3) [Vitamin D3 2000 unit Tablet] 2,000 unit PO DAILY 10/18/18 Diphenhydramine HCl [Benadryl] 50 mg PO QHS 10/18/18 Loratadine [Claritin] 10 mg PO QHS 10/18/18 Metoprolol Succinate [Toprol Xl] 25 mg PO DAILY 10/18/18 [place]-3S/Dha/Epa/Fish Oil [Fish Oil 1,200 mg Softgel] 1 tab PO DAILY 10/18/18 Rosuvastatin Calcium [Crestor] 40 mg PO DAILY 10/18/18 Sennosides/Docusate Sodium [Stool Softener-Laxative Tablet] 1 tab PO DAILYP PRN 10/18/18 Tamsulosin HCl [Flomax] 0.4 mg PO DAILY 10/18/18 Tiotropium [place] [Spiriva Handihaler 5 Cap/Kit (18 Mcg/Cap)] 18 mcg IH DAILY 10/18/18 Acetaminophen [Acetaminophen Extra Strength] 500 mg PO DAILYP PRN 05/05/20 Azithromycin [Zithromax] 250 mg PO DAILY #5 tablet 05/05/20 Psyllium Husk [Metamucil] 0.4 gm PO QHS 05/05/20 Vitamin E 100 unit PO DAILY 05/05/20 History of Present Illiness History of Present Illness: STALIN WRIGHT JR is a 79 year old male Physical Exam Vital Signs: Temp Pulse Resp BP Pulse Ox 97.4 F 70 15 104/57 L 95 05/05/20 13:45 05/05/20 13:45 05/05/20 13:45 05/05/20 13:45 05/05/20 13:45 Intake & Output 05/04/20 05/05/20 05/06/20 06:59 06:59 06:59 Intake Total 300 2675 230 Output Total 835 Balance 300 1840 230 Weight 75.4 kg 75.4 kg Results Laboratory Results: WBC 12.9 10^3/uL (4.0-10.5) H 05/05/20 09:50 RBC 4.00 10^6/uL (4.35-5.55) L 05/05/20 09:50 Hgb 11.8 g/dL (13.5-17.0) L 05/05/20 09:50 Hct 35.0 % (37.9-51.0) L 05/05/20 09:50 MCV 88 fl (80-97) 05/05/20 09:50 MCH 29.5 pg (27.0-33.4) 05/05/20 09:50 MCHC 33.8 g/dL (32.0-36.0) 05/05/20 09:50 RDW 13.7 % (11.5-14.0) 05/05/20 09:50 Plt Count 160 10^3/uL (150-450) 05/05/20 09:50 Lymph % (Auto) Not Reportable 05/04/20 06:37 [place] % (Auto) Not Reportable 05/04/20 06:37 Eos % (Auto) Not Reportable 05/04/20 06:37 Baso % (Auto) Not Reportable 05/04/20 06:37 Absolute Neuts (auto) Not Reportable 05/04/20 06:37 Absolute Lymphs (auto) Not Reportable 05/04/20 06:37 Absolute Monos (auto) Not Reportable 05/04/20 06:37 Absolute Eos (auto) Not Reportable 05/04/20 06:37 Absolute Basos (auto) Not Reportable 05/04/20 06:37 Total Counted 100 05/04/20 06:37 Seg Neutrophils % Not Reportable 05/04/20 06:37 Seg Neuts % (Manual) 90 % (42-78) H 05/04/20 06:37 Band Neutrophils % 5 % (3-5) 05/04/20 06:37 Lymphocytes % (Manual) 1 % (13-45) L 05/04/20 06:37 Monocytes % (Manual) 4 % (3-13) 05/04/20 06:37 Eosinophils % (Manual) 0 % (0-6) 05/04/20 06:37 Basophils % (Manual) 0 % (0-2) 05/04/20 06:37 Abs Neuts (Manual) 10.4 10^3/uL (1.7-8.2) H 05/04/20 06:37 Abs Lymphs (Manual) 0.1 10^3/uL (0.5-4.7) L 05/04/20 06:37 Abs Monocytes (Manual) 0.4 10^3/uL (0.1-1.4) 05/04/20 06:37 Absolute Eos (Manual) 0.0 10^3/uL (0.0-0.6) 05/04/20 06:37 Abs Basophils (Manual) 0.0 10^3/uL (0.0-0.2) 05/04/20 06:37 Hypersegmented Neuts PRESENT 05/03/20 19:44 Toxic Vacuolation PRESENT 05/03/20 19:44 Platelet Comment DECREASED 05/04/20 06:37 Anisocytosis SLIGHT 05/04/20 06:37 [place] Cells SLIGHT 05/03/20 19:44 PT 16.8 SEC (11.4-15.4) H 05/04/20 06:37 INR 1.35 05/04/20 06:37 APTT 48.8 SEC (23.5-35.8) H 05/04/20 06:37 D-Dimer 1.05 ug/mL (0.00-0.50) H 05/04/20 06:37 Carbonic Acid 0.97 mmol/L (1.05-1.35) L 05/04/20 10:20 HCO3/H2CO3 Ratio 21:1 05/04/20 10:20 ABG pH 7.43 (7.35-7.45) 05/04/20 10:20 ABG pCO2 32.2 mmHg (35-45) L 05/04/20 10:20 ABG pO2 49.9 mmHg (80-100) L 05/04/20 10:20 ABG HCO3 20.7 mmol/L (20-24) 05/04/20 10:20 ABG Total CO2 21.6 mmol/L (23-27) L 05/04/20 10:20 ABG O2 Saturation 86.7 % (94-98) L 05/04/20 10:20 ABG Base Excess -2.9 mmol/L 05/04/20 10:20 VBG pH 7.40 (7.30-7.42) 05/04/20 00:05 VBG pCO2 32.4 mmHg (35-63) L 05/04/20 00:05 VBG HCO3 19.7 mmol/L (20-32) L 05/04/20 00:05 VBG Base Excess -4.2 mmol/L 05/04/20 00:05 FiO2 21% 05/04/20 10:20 Sodium 137.6 mmol/L (137-145) 05/05/20 09:50 Potassium 4.6 mmol/L (3.6-5.0) 05/05/20 09:50 Chloride 107 mmol/L (98-107) 05/05/20 09:50 Carbon Dioxide 21 mmol/L (22-30) L 05/05/20 09:50 Anion Gap 10 (5-19) 05/05/20 09:50 BUN 36 mg/dL (7-20) H 05/05/20 09:50 Creatinine 1.31 mg/dL (0.52-1.25) H 05/05/20 09:50 Est GFR ( Amer) > 60 (>60) 05/05/20 09:50 Est GFR (MDRD) Non-Af 53 (>60) L 05/05/20 09:50 Glucose 115 mg/dL (75-110) H 05/05/20 09:50 Lactic Acid 1.6 mmol/L (0.7-2.1) 05/04/20 00:05 Calcium 9.3 mg/dL (8.4-10.2) 05/05/20 09:50 Magnesium 2.4 mg/dL (1.6-2.3) H 05/05/20 09:50 Ferritin 162.00 ng/mL (17.9-464.0) 05/03/20 19:44 Total Bilirubin 1.0 mg/dL (0.2-1.3) 05/04/20 06:37 Direct Bilirubin 0.3 mg/dL (0.0-0.4) 05/04/20 06:37 Neonat Total Bilirubin Not Reportable 05/04/20 06:37 Neonat Direct Bilirubin Not Reportable 05/04/20 06:37 Neonat Indirect Bili Not Reportable 05/04/20 06:37 AST 23 U/L (17-59) 05/04/20 06:37 ALT 11 U/L (<50) 05/04/20 06:37 Alkaline Phosphatase 44 U/L (38-126) 05/04/20 06:37 Lactate Dehydrogenase 161 U/L (120-246) 05/04/20 06:37 Troponin I < 0.012 ng/mL 05/03/20 19:44 C-Reactive Protein 336.1 mg/L (<10.0) H 05/04/20 06:37 NT-Pro-B Natriuret Pep 172 pg/mL (<450) 05/03/20 19:44 Total Protein 6.6 g/dL (6.3-8.2) 05/04/20 06:37 Albumin 3.5 g/dL (3.5-5.0) 05/04/20 06:37 COVID-19 Source NASOPHARYNGEAL 05/04/20 04:05 COVID-19 (LEIGH) NOT DETECTED 05/04/20 04:05 05/03/20 19:44 Troponin I < 0.012 NT-Pro-B Natriuret Pep 172 Impressions: Chest X-Ray 05/03/20 21:28 IMPRESSION: Patchy left basilar opacity suggesting early pneumonia. Stroke Is this a Stroke Patient?: No Acute Heart Failure Is this a Heart Failure Patient?: No
== END 2020-05-05 14:39 | disposition home or self-care (01) | DRG 193 ==
LOC: ER 19:17 → EH 05-04 01:13 → 3N 05-04 06:15 → 3W 05-05 06:25
PROVIDERS: ADMIT Hospitalist; ATTEND Hospitalist
DX: J18.9 Pneumonia, unspecified organism (principal); J96.01 Acute respiratory failure with hypoxia; N17.9 Acute kidney failure, unspecified; J44.9 Chronic obstructive pulmonary disease, unspecified; I25.10 Atherosclerotic heart disease of native coronary artery without angina pectoris; I12.9 Hypertensive chronic kidney disease with stage 1 through stage 4 chronic kidney disease, or unspecified chronic kidney disease; E78.5 Hyperlipidemia, unspecified; K21.9 Gastro-esophageal reflux disease without esophagitis; N18.3 Chronic kidney disease, stage 3 (moderate); E86.0 Dehydration; N40.0 Benign prostatic hyperplasia without lower urinary tract symptoms; Z60.2 Problems related to living alone; Z66 Do not resuscitate; Z20.828 Contact with and (suspected) exposure to other viral communicable diseases; Z87.891 Personal history of nicotine dependence; Z95.5 Presence of coronary angioplasty implant and graft; Z79.82 Long term (current) use of aspirin; Z79.51 Long term (current) use of inhaled steroids; Z79.899 Other long term (current) drug therapy
CPT/HCPCS: 36415; 36600; 71045; 80048; 80053; 82728; 82803; 83605; 83615; 83735; 83880; 84484; 85025; 85027; 85379; 85610; 85730; 86140; 87040; 87635; 93005; 93010; 94799; 99285; C9803; J0456; J0696; J1100; J1650; J2930; J3490; J7030; J7060; J7120

== ENCOUNTER 2020-06-17 18:36 | Emergency (ER) | payer MEDICARE, BC ==
--- NOTE | 2020-06-17 19:42 | ER Document Report ---
ED Medical Screen (RME) - General Chief Complaint: Shortness Of Breath Stated Complaint: FEVER Time Seen by Provider: 06/17/20 19:31 Primary Care Provider: Tashi HAMLIN MD [Primary Care Provider] - Follow up as needed Mode of Arrival: Wheelchair Information source: Patient Notes: 79-year-old male presented to ED for complaint of shortness of breath fever cough and congestion for several days getting worse and chest pain started about lunchtime. He does have a history of coronary artery disease high blood pressure cholesterol and COPD. He states he is also had chills throughout the day. I have ordered a Covid test as well as flu and blood in urine chest x-ray. I have greeted and performed a rapid initial assessment of this patient. A comprehensive ED assessment and evaluation of the patient, analysis of test results and completion of medical decision making process will be conducted by an additional ED providers. TRAVEL OUTSIDE OF THE [place] IN LAST 30 DAYS: No - Related Data Allergies/Adverse Reactions: No Known Allergies Allergy (Verified 10/18/18 08:07) Past Medical History - General Information source: Patient - Social History Cigarette use (# per day): No Frequency of alcohol use: None Drug Abuse: None Lives with: Alone Family history: Reviewed & Not Pertinent - Past Medical History Cardiac Medical History: Reports: Hx Coronary Artery Disease - CARDIAC STENT X 1, Hx Hypercholesterolemia, Hx Hypertension - ON MEDICATION Denies: Hx Heart Attack Pulmonary Medical History: Reports: Hx COPD - NO OXYGEN, USE OF INHALER PRN, Hx Pneumonia - 1971 Neurological Medical History: Denies: Hx Cerebrovascular Accident, Hx Seizures Endocrine Medical History: Denies: Hx Diabetes Mellitus Type 2 GI Medical History: Reports: Hx Gastroesophageal Reflux Disease. Denies: Hx Cirrhosis, Hx Hepatitis Musculoskeltal Medical History: Reports None Psychiatric Medical History: Denies: Hx Depression Infectious Medical History: Denies: Hx C-Diff, Hx Hepatitis Past Surgical History: Reports: Hx Cardiac Catheterization, Hx Coronary Stent - Immunizations Hx Diphtheria, Pertussis, Tetanus Vaccination: No - UNSURE 4-5 YRS AGO? History of Influenza Vaccine for 05/2019 - 10/2019 Season: Yes Physical Exam - Vital signs Vitals: Temp Pulse Resp BP Pulse Ox 98.6 F 116 H 16 117/79 95 06/17/20 18:52 06/17/20 18:52 06/17/20 18:52 06/17/20 18:52 06/17/20 18:52 Course - Vital Signs Vital signs: Temp Pulse Resp BP Pulse Ox 98.6 F 116 H 16 117/79 95 06/17/20 18:52 06/17/20 18:52 06/17/20 18:52 06/17/20 18:52 06/17/20 18:52 Doctor's Discharge - Discharge Referrals: Tashi HAMLIN MD [Primary Care Provider] - Follow up as needed
--- NOTE | 2020-06-17 20:48 | RADIOLOGY REPORT (SQ) ---
EXAM DESCRIPTION: XR CHEST 1 VIEW COMPLETED DATE/TME: 06/17/2020 19:40 CLINICAL HISTORY: 79 years, Male, Cough congestion short of breath fever at home COMPARISON: Chest x-ray 05/03/2020 TECHNIQUE: Upright portable chest x-ray FINDINGS: Mild cardiomegaly and ectatic aorta unchanged. Mild bilateral mid and lower lung interstitial abnormalities. There is question lung nodularities versus soft tissue changes from rib fractures in the left upper chest and possibly also on the right side. IMPRESSION: Lung nodules versus rib abnormalities in both upper chest. Additional nonspecific interstitial findings. Consider CT chest for further evaluation.
[2020-06-17 20:49] LABS: APPEARANCE,URINE CLEAR; BILIRUBIN,URINE NEGATIVE (NEGATIVE); COLOR,URINE YELLOW; GLUCOSE, URINE NEGATIVE (NEGATIVE); KETONES,URINE NEGATIVE (NEGATIVE); PROTEIN,URINE NEGATIVE (NEGATIVE); URINE SPECIFIC GRAVITY 1.012; UROBILINOGEN,URINE NEGATIVE mg/dL (<2.0)
--- NOTE | 2020-06-17 20:54 | ER Document Report ---
ED General - General Chief Complaint: Shortness Of Breath Stated Complaint: FEVER Time Seen by Provider: 06/17/20 19:31 Primary Care Provider: Tashi HAMLIN MD [Primary Care Provider] - Follow up as needed Mode of Arrival: Wheelchair Notes: Patient is an 79-year-old white male with a history of COPD who is a former smoker, history of hypertension, CAD, chronic kidney disease who was admitted here last month for pneumonia and acute respiratory failure with COPD who presents to the emergency department the chief complaint of shortness of breath. The patient reports that this morning around noon he began feeling short of breath. He states that the episodes of dyspnea have come in waves. He reports worse with exertion however has had episodes at rest as well. He admits to some tightness in the center chest. Admits to associated cough and raspy feeling with breathing. He denies any known sick contacts but states that he is known a few people in the community who has been around either by first person or a second person contact to have had COVID-19. He denies any fevers. He was negative for COVID-19 last month here. No new recent travels. No sore throat or body aches or any other pain, complaints or concerns at this time. TRAVEL OUTSIDE OF THE [place] IN LAST 30 DAYS: No - Related Data Allergies/Adverse Reactions: No Known Allergies Allergy (Verified 06/17/20 20:03) Past Medical History - General Information source: Patient - Social History Smoking Status: Former Smoker Cigarette use (# per day): No Frequency of alcohol use: None Drug Abuse: None Lives with: Alone Family History: Reviewed & Not Pertinent Patient has homicidal ideation: No - Past Medical History Cardiac Medical History: Reports: Hx Coronary Artery Disease - CARDIAC STENT X 1, Hx Hypercholesterolemia, Hx Hypertension - ON MEDICATION Denies: Hx Heart Attack Pulmonary Medical History: Reports: Hx COPD - NO OXYGEN, USE OF INHALER PRN, Hx Pneumonia - 1970 Neurological Medical History: Denies: Hx Cerebrovascular Accident, Hx Seizures Endocrine Medical History: Denies: Hx Diabetes Mellitus Type 2 GI Medical History: Reports: Hx Gastroesophageal Reflux Disease. Denies: Hx Cirrhosis, Hx Hepatitis Musculoskeletal Medical History: Reports None Psychiatric Medical History: Denies: Hx Depression Infectious Medical History: Denies: Hx C-Diff, Hx Hepatitis Past Surgical History: Reports: Hx Cardiac Catheterization, Hx Coronary Stent - Immunizations Hx Diphtheria, Pertussis, Tetanus Vaccination: No - UNSURE 4-5 YRS AGO? Hx Pneumococcal Vaccination: 08/22/10 Review of Systems - Review of Systems Constitutional: denies: Fever EENT: denies: Nose congestion Cardiovascular: Dyspnea Respiratory: Short of breath Gastrointestinal: denies: Blood in vomit Genitourinary: denies: Frequency Male Genitourinary: denies: Testicular pain Musculoskeletal: denies: Joint swelling Skin: denies: Dryness Hematologic/Lymphatic: denies: Easy bleeding Neurological/Psychological: denies: Weakness Physical Exam - Vital signs Vitals: Temp Pulse Resp BP Pulse Ox 98.6 F 116 H 16 117/79 95 06/17/20 18:52 06/17/20 18:52 06/17/20 18:52 06/17/20 18:52 06/17/20 18:52 - General General appearance: Appears well, Alert In distress: None Notes: No acute distress - HEENT Head: Normocephalic, Atraumatic Eyes: Normal Conjunctiva: Normal Extraocular movements intact: Yes Eyelashes: Normal Pupils: PERRL Ears: Normal External canal: Normal Tympanic membrane: Normal Nasal: Normal Mouth/Lips: Normal Mucous membranes: Normal Pharynx: Normal Neck: Normal - Respiratory Respiratory status: No respiratory distress Chest status: Nontender Breath sounds: Rhonchi Chest palpation: Normal - Cardiovascular Rhythm: Regular Heart sounds: Normal auscultation - Extremities General upper extremity: Normal inspection, Nontender, Normal color, Normal ROM, Normal temperature General lower extremity: Normal inspection, Nontender, Normal color, Normal ROM, Normal temperature, Normal weight bearing. No: Justin's sign - Neurological Neuro grossly intact: Yes Cognition: Normal Orientation: AAOx4 - Psychological Associated symptoms: Normal affect, Normal mood - Skin Skin Temperature: Warm Skin Moisture: Dry Skin Color: Normal Course - Re-evaluation Re-evalutation: 06/17/20 20:55 EK. Sinus tachycardia at 107 bpm. Normal intervals. Normal axis. Right bundle branch block. No STEMI. Largely unchanged from prior dated 05/04/2020. Interpreted by myself in conjunction with ED attending. 06/17/20 22:42 Repeat EKG at 2236: Sinus rhythm at 99 bpm. Normal axis. Normal intervals. Right bundle branch block still in place. No STEMI. Unchanged from prior during this visit. Interpreted by myself in conjunction with ED attending. 06/18/20 00:08 2 EKGs unchanged during his stay here and he was monitored without evidence of change. Vitals are within normal limits. Patient does not desaturate with exertion or with rest. He has no evidence of any significant cough here. He did have some scant coarse lung sounds throughout was given a DuoNeb treatment and was noted to be clear to auscultation bilaterally. The patient states that he feels better here now than he did earlier today. He was given some Decadron and a Tylenol for a headache. His chest x-ray was negative for acute process. His CT chest showing asbestosis but no other acute findings. He has a slightly elevated white count with a left shift but no other evidence of source of infection. His kidney function is chronically elevated and at baseline for him. BNP normal. Urine only remarkable for some blood. Influenza swabs negative. Patient is pending a COVID-19 test. Is felt that he is stable and appropriate for discharge and outpatient follow-up at this time. His daughter will pick him up and he advises that they will closely monitor him for any signs or symptoms of worsening. At this point there is no need for further emergency department care or admission to the hospital. Discussed this with patient and he agrees. He has COPD medications and inhalers at home. He will use these as previously prescribed. Counseled him regarding the importance of outpatient follow-up, I requested that he call his primary doctor first thing the morning and request to be seen same day for reevaluation. He advised that he would. He also stated that should he need to return with any new, persistent or worsening symptoms that his daughter and/or son who live nearby could easily bring him very quickly or that he would call 911. He will quarantine for the next 3 to 5 days pending his COVID-19 test, he will be called with the results as we discussed. 06/18/20 00:10 06/18/20 00:10 06/18/20 00:10 06/18/20 00:11 06/18/20 00:11 - Vital Signs Vital signs: Temp Pulse Resp BP Pulse Ox 98.6 F 116 H 17 117/79 94 06/17/20 18:52 06/17/20 18:52 06/17/20 22:00 06/17/20 18:52 06/17/20 22:00 - Laboratory Result Diagrams: 06/17/20 20:30 06/17/20 20:30 Laboratory results interpreted by me: 06/17/20 06/17/20 06/17/20 20:10 20:30 20:30 WBC 14.2 H RDW 14.1 H Lymph % (Auto) 6.0 L Absolute Neuts (auto) 12.0 H Seg Neutrophils % 84.4 H Creatinine 1.34 H Est GFR (MDRD) Non-Af 51 L Glucose 112 H Urine Blood SMALL H Discharge - Discharge Clinical Impression: COPD exacerbation, Asbestosis, Exertional shortness of breath, Person under investigation for COVID-19 Condition: Stable Disposition: HOME, SELF-CARE Instructions: COVID-19 Guidance for Persons Under Investigation Referrals: Tashi HAMLIN MD [Primary Care Provider] - Follow up as needed
[2020-06-17 21:03] LABS: ABSOLUTE LYMPHOCYTES (AUTO) 0.8 10^3/uL (0.5-4.7); ABSOLUTE MONOCYTES (AUTO) 1.4 10^3/uL (0.1-1.4); BASOPHILS % (AUTO) 0.1 % (0-2); HEMATOCRIT 40.6 % (37.9-51.0); HEMOGLOBIN 14.1 g/dL (13.5-17.0); MEAN CORPUSCULAR HEMOGLOBIN 29.7 pg (27.0-33.4); MEAN CORPUSCULAR HGB CONC 34.8 g/dL (32.0-36.0); MEAN CORPUSCULAR VOLUME 85 fl (80-97); MONOCYTES % (AUTO) 9.5 % (3-13); PLATELET COUNT 167 10^3/uL (150-450); RED BLOOD COUNT 4.75 10^6/uL (4.35-5.55); RED CELL DISTRIBUTION WIDTH 14.1 % (11.5-14.0); SEGMENTED NEUTROPHILS % (AUTO) 84.4 % (42-78); TOTAL CELLS COUNTED % (AUTO) 100 %; WHITE BLOOD COUNT 14.2 10^3/uL (4.0-10.5)
[2020-06-17 21:08] LABS: A TYPE INFLUENZA AG NEGATIVE (NEGATIVE); B INFLUENZA AG NEGATIVE (NEGATIVE)
[2020-06-17 21:14] LABS: BLOOD UREA NITROGEN 18 mg/dL (7-20); CALCIUM 10.2 mg/dL (8.4-10.2); GLUCOSE 112 mg/dL (75-110)
[2020-06-17 21:15] LABS: ALBUMIN 4.4 g/dL (3.5-5.0); ALKALINE PHOSPHATASE 62 U/L (38-126); ANION GAP 10 (5-19); ASPARTATE AMINO TRANSFERASE 31 U/L (17-59); BILIRUBIN,DIRECT 0.1 mg/dL (0.0-0.4); BILIRUBIN,TOTAL 1.3 mg/dL (0.2-1.3); CARBON DIOXIDE 24 mmol/L (22-30); CHLORIDE 103 mmol/L (98-107); POTASSIUM 4.5 mmol/L (3.6-5.0); TOTAL PROTEIN 7.9 g/dL (6.3-8.2)
[2020-06-17 21:25] LABS: NT PRO BNP 177 pg/mL (<450)
[2020-06-17 21:26] LABS: TROPONIN I < 0.012 ng/mL
--- NOTE | 2020-06-17 22:24 | RADIOLOGY REPORT (SQ) ---
EXAM DESCRIPTION: CT CHEST WITH IV CONTRAST COMPLETED DATE/TME: 06/17/2020 20:51 CLINICAL HISTORY: 79 years, Male, upper lobes abnl on xray COMPARISON: Chest x-ray from today. TECHNIQUE: Study performed with 66 mL of Omnipaque 350 Sagittal coronal reconstruction. Images stored on PACS. All CT scanners at this facility use dose modulation, iterative reconstruction, and/or weight based dosing when appropriate to reduce radiation dose to as low as reasonably achievable (ALARA). FINDINGS: Motion artifact. Central pulmonary arteries without acute findings. Moderate calcifications of the aortic annulus. 3.5 cm ascending aorta. No dissection. Heart is not enlarged. Coronary calcifications. Multiple too many to count small mediastinal lymph nodes. Mildly enlarged 13 mm in transverse diameter subcarinal lymph node. No evidence for pericardial effusion. [id number] hiatal hernia. Evaluation of the lungs demonstrates mild hyperinflation and suspected centrilobular emphysematous not well appreciated because of motion artifact. There are areas of fibrosis in the lingula, both lower lobes greater on the left and in the base of the right upper lobe. There are scattered bilateral pleural plaques some of them with calcifications. There is no suspicious lung nodule. Limited images of the upper abdomen without significant acute findings. IMPRESSION: 1. Calcification of the aortic annulus suspicious for aortic valve disease. There is mild non-aneurysmal dilatation of the aorta. 2. Multiple tiny mediastinal lymph nodes. Single mildly enlarged infracarinal lymph node. Statistically more likely benign and reactive. 3. Multifocal areas of interstitial abnormalities some relatively focal. No typical appearance of viral pneumonia. Interstitial changes may be secondary to asbestos disease. 4. Several small pleural plaques some of them mildly calcified. Consistent with asbestos exposure. These were the nodules seen on chest x-ray. There are no suspicious true lung nodules.
[2020-06-17] MEDS ORDERED: DEXAMETHASONE SOD PHOS INJ 10 MG/1 ML VIAL IV ONE (23:37)
[2020-06-17] MEDS ORDERED: ACETAMINOPHEN 325 MG TABLET PO ONE (23:37)
[2020-06-17] MEDS ORDERED: IPRATROPIUM/ALBUTEROL 0.5-2.5 MG/3 ML AMPUL NEB ONE (23:37)
[2020-06-18 00:54] VITALS: BP 110/70
--- NOTE | 2020-06-18 07:41 | EKG REPORT ---
SEVERITY:- BORDERLINE ECG - SINUS RHYTHM INTRAVENTRICULAR CONDUCTION DELAY PRECORDIAL LEAD PLACEMENT ERROR. : Confirmed by: Carrillo Quiroz MD 18-Jun-2020 07:40:50
--- NOTE | 2020-06-18 07:42 | EKG REPORT ---
SEVERITY:- ABNORMAL ECG - SINUS TACHYCARDIA INCOMPLETE RIGHT BUNDLE BRANCH BLOCK : Confirmed by: Carrillo Quiroz MD 18-Jun-2020 07:41:07
== END 2020-06-18 00:54 | disposition home or self-care (01) ==
LOC: ER 18:36
DX: J44.1 Chronic obstructive pulmonary disease with (acute) exacerbation (principal); J61 Pneumoconiosis due to asbestos and other mineral fibers; R06.02 Shortness of breath; R06.00 Dyspnea, unspecified; R50.9 Fever, unspecified; R00.0 Tachycardia, unspecified; Z20.828 Contact with and (suspected) exposure to other viral communicable diseases; Z87.891 Personal history of nicotine dependence; I25.10 Atherosclerotic heart disease of native coronary artery without angina pectoris; I10 Essential (primary) hypertension
CPT/HCPCS: 93005; 94640; 99285; 96374; 36415; 85025; 80053; 81001; 84484; 87804; 83880; 71045; 71260; 93010; U0003; A9270; J1100; C9803; 87635